=== PATIENT | female | born 1990 | race Hispanic/Latino ===

== ENCOUNTER 2017-09-01 22:08 | Inpatient (IN) | payer MEDICAID, OTHER ==
[~2017-09-01] VITALS: Ht 154 cm; Wt 122.0 kg
[2017-09-01 22:46] LABS: HCG,QUAL RESULT NEGATIVE (NEGATIVE)
[2017-09-01 22:47] LABS: APPEARANCE,URINE Cloudy (CLEAR); BILIRUBIN,URINE Negative (NEGATIVE); COLOR,URINE Yellow (YELLOW); GLUCOSE, URINE (UA) Negative (NEGATIVE); KETONES,URINE Negative (NEGATIVE); LEUKOCYTE ESTERASE ,URINE Trace (NEGATIVE); NITRATE,URINE Negative (NEGATIVE); OCCULT BLOOD,URINE Moderate (NEGATIVE); PROTEIN,URINE POS 1+ (NEGATIVE)
[2017-09-01 22:54] LABS: AMPHET/METH SCREEN,URINE NEGATIVE (NEGATIVE); BARBITURATE SCREEN, URINE NEGATIVE (NEGATIVE); BENZODIAZEPINES SCREEN,URINE NEGATIVE (NEGATIVE); CANNABINOID SCREEN,URINE NEGATIVE (NEGATIVE); COCAINE SCREEN,URINE NEGATIVE (NEGATIVE); OPIATE SCREEN,URINE NEGATIVE (NEGATIVE); PHENCYCLIDINE SCREEN,URINE NEGATIVE (NEGATIVE)
[2017-09-01] MEDS ORDERED: MAG HYDROX/AL HYDROX/SIMETH ES 30 ML SUSP UDCUP ONE (22:56)
[2017-09-01] MEDS ORDERED: ONDANSETRON HCL 4 MG/2 ML VIAL ONE (22:56)
[2017-09-01] MEDS ORDERED: LIDOCAINE HCL 2% VISCOUS 15 ML UDCUP ONE (22:56)
[2017-09-01] MEDS ORDERED: SODIUM CHLORIDE 0.9% 1000ML 1,000 ML IV ONE (22:56)
[2017-09-01 22:58] LABS: BASOPHILS % (AUTO) 0.4 % (0.0-5.0); EOSINOPHILS % (AUTO) 0.1 % (0.0-8.0); LYMPHOCYTES % (AUTO) 10.5 % (21.0-51.0); MEAN CORPUSCULAR HEMOGLOBIN 25.2 pg (27.0-33.0); MEAN CORPUSCULAR HGB CONC 32.7 g/dL (32.0-36.0); MEAN CORPUSCULAR VOLUME 77.1 fL (79-99); MONOCYTES % (AUTO) 4.9 % (3.0-13.0); NEUTROPHILS % (AUTO) 84.1 % (40.0-77.0); PLATELET COUNT (AUTO) 348 K/uL (130-400); WHITE BLOOD COUNT (AUTO) 17.8 K/uL (4.8-10.8)
[2017-09-01 23:02] LABS: BACTERIA,URINE Rare /HPF (None Seen); SQUAMOUS EPITHELIAL CELL,UR Moderate /HPF (0-2); WBC,URINE 0-1 /HPF (0-1)
[2017-09-01 23:06] LABS: CREATININE 0.6 mg/dL (0.5-1.5); POTASSIUM 4.4 mmol/L (3.5-5.1)
[2017-09-01 23:11] LABS: ALBUMIN 3.9 g/dL (3.5-5.0); BILIRUBIN,DIRECT 0.1 mg/dL (0.0-0.3); BILIRUBIN,TOTAL 0.6 mg/dL (0.2-1.0); TOTAL PROTEIN, SERUM 8.6 g/dL (6.0-8.3)
[2017-09-02] VITALS (21 sets, daily range): BP systolic 95–135; BP diastolic 46–89
[2017-09-02] MEDS ORDERED: KETOROLAC TROMETHAMINE 30MG/ML ONE (00:02)
[2017-09-02] MEDS ORDERED: ZOSYN 3.375GM+NS 50ML 50 ML IV ONE (00:02)
[2017-09-02] MEDS ORDERED: LACTATED RINGERS 1000ML 1,000 ML IV SCH (01:15)
[2017-09-02] MEDS ORDERED: ONDANSETRON HCL MDV 20ML 2 MG/ML VIAL IVP PRN (01:15)
[2017-09-02] MEDS ORDERED: LACTATED RINGERS 1000ML 1,000 ML IV ONE (03:16)
[2017-09-02] MEDS ORDERED: MORPHINE SULFATE 2 MG/ML 1ML SYG ONE (03:16)
[2017-09-02] MEDS: MORPHINE SULFATE 2 MG/ML 1ML SYG IVP PRN ×2 (06:27→16:17)
[2017-09-02] MEDS ORDERED: ESOM20TA PO (06:47)
[2017-09-02 07:24] LABS: CREATININE 0.6 mg/dL (0.5-1.5); POTASSIUM 3.7 mmol/L (3.5-5.1)
[2017-09-02 07:25] LABS: HEMATOCRIT 33.5 % (36-48); MEAN CORPUSCULAR HEMOGLOBIN 24.9 pg (27.0-33.0); MEAN CORPUSCULAR HGB CONC 32.2 g/dL (32.0-36.0); MEAN CORPUSCULAR VOLUME 77.5 fL (79-99); PLATELET COUNT (AUTO) 279 K/uL (130-400); RED BLOOD CELL COUNT(AUTO) 4.33 MIL/uL (4.00-5.50); WHITE BLOOD COUNT (AUTO) 14.9 K/uL (4.8-10.8)
[2017-09-02] MEDS: ZOSYN 3.375GM+NS 50ML 50 ML IV SCH ×3 (07:52→20:46)
[2017-09-02] MEDS ORDERED: MEPERIDINE-PF 25 MG/ML SYG ONE ×2 (09:06→11:13)
[2017-09-02] MEDS ORDERED: LIDOCAINE PF 2% 5ML ABBOJECT ONE (09:52)
[2017-09-02] MEDS ORDERED: DEXAMETHASONE SOD PHOSPHATE 10MG/ML 1ML VIAL ONE (09:52)
[2017-09-02] MEDS ORDERED: ONDANSETRON HCL 4 MG/2 ML VIAL ONE (09:52)
[2017-09-02] MEDS ORDERED: SUCCINYLCHOLINE 200MG/10ML SYR ONE (09:52)
[2017-09-02] MEDS ORDERED: GLYCOPYRROLATE 0.2 MG/ML 5 ML VIAL ONE ×2 (09:52→10:40)
[2017-09-02] MEDS ORDERED: NEOSTIGMINE 5MG/5ML SYR IV ONE ×2 (09:52→10:39)
[2017-09-02] MEDS ORDERED: FENTANYL CITRATE PF 50 MCG/1 ML 2ML VIAL ONE ×2 (09:53→10:21)
[2017-09-02] MEDS ORDERED: PROPOFOL 10 MG/ML 20ML VIAL IV ONE (09:53)
[2017-09-02] MEDS ORDERED: MIDAZOLAM HCL 1 MG/ML 2ML VIAL ONE (09:53)
[2017-09-02] MEDS ORDERED: MEPERIDINE HCL/PF 25 MG/0.5 ML AMPUL IVP ONE (10:00)
[2017-09-02] MEDS ORDERED: ACETAMINOPHEN-CODEINE 300/30MG TAB PO PRN (11:00)
[2017-09-02] MEDS: ONDANSETRON HCL 4 MG/2 ML VIAL IVP PRN ×2 (11:15→16:25)
[2017-09-02] MEDS: ACETAMINOPHEN-CODEINE 300/30MG TAB PO PRN (14:05)
[2017-09-02] MEDS: LACTATED RINGERS 1000ML 1,000 ML IV SCH (18:20)
[2017-09-03 00:24] VITALS: BP 140/76
[2017-09-03] MEDS: ACETAMINOPHEN-CODEINE 300/30MG TAB PO PRN ×2 (02:47→08:47)
[2017-09-03 04:35] VITALS: BP 140/87
[2017-09-03] MEDS: ZOSYN 3.375GM+NS 50ML 50 ML IV SCH (05:08)
[2017-09-03 07:29] VITALS: BP 127/79
[2017-09-03] MEDS: LACTATED RINGERS 1000ML 1,000 ML IV SCH (07:30)
[2017-09-03] MEDS ORDERED: ACET1TAB12 PO (11:34)
[2017-09-03 11:41] VITALS: BP 112/69
== END 2017-09-03 12:55 | disposition home or self-care (01) | DRG 342 ==
LOC: EDH 22:08 → EDHIP 22:09 → WSH 09-02 05:25
PROVIDERS: ADMIT Surgery; ATTEND Surgery
PROC: 0DTJ0ZZ Resection of Appendix, Open Approach (ICD-10-PCS; principal; 2017-09-02 10:11)
DX: K35.80 Unspecified acute appendicitis (principal); I96 Gangrene, not elsewhere classified; Z88.8 Allergy status to other drugs, medicaments and biological substances
CPT/HCPCS: 36415; 74176; 80048; 80076; 80305; 81001; 81025; 82550; 83690; 85025; 85027; 88304; J0330; J1100; J1885; J2001; J2175; J2250; J2405; J2543; J2704; J2710; J3010; J3490; J7030; J7120